=== PATIENT | male | born 1940 | race Caucasian/White ===

== ENCOUNTER → 2017-05-06 | Day surgery (SDC) | payer MEDICARE ==
[~2017-05-06] VITALS: Ht 180.3 cm; Wt 77.1 kg
[~2017-05-06] MED LIST: 0.9% Sodium Chloride 1,000 ML IV PRN; Sodium Chloride LOK Flush 10 mL Syringe IV PRN; fentaNYL-PF 50 mCg/mL 2 mL Inj IVPUSH PRN
[2017-05-06 08:14] VITALS: BP 132/82; PULSE 72; RESP 12; O2SAT 96
[2017-05-06 09:13] VITALS: BP 119/78; PULSE 67; RESP 14; O2SAT 98
[2017-05-06 09:26] VITALS: BP 116/72; PULSE 61; RESP 16; O2SAT 97
--- NOTE | 2017-05-06 09:44 | ENDO ---
[address] [address] ENDOSCOPY PROCEDURE PATIENT: LIAM YANG : 1940 MR#: [id number] ADMIT: 05/06/2017 JOB ID: [id number] DATE: 05/06/2017 PRIMARY PROVIDER: Bandar De Leon MD PROCEDURE: Colonoscopy with hot snare polypectomy and cold forceps polypectomy. INDICATIONS: A 76-year-old male with a personal history of colon polyps returning for surveillance. EQUIPMENT: PCF-H180AL SEDATION: 1. Versed 2 mg. 2. Fentanyl 50 mcg. COMPLICATIONS: None identified. BOWEL PREPARATION: Fair, adequate exam. PROCEDURE INFO: After the risks and benefits were explained, written and verbal informed consent was obtained. The patient was brought into the endoscopy suite and placed into the left lateral decubitus position. Sedation was achieved using the above-stated medications with the addition of oxygen via nasal cannula. The digital rectal examination was accomplished. Mild internal hemorrhoids were appreciated. The scope was then introduced into the rectum and advanced to the cecum as identified by the appendiceal orifice and ileocecal valve. The scope was slowly withdrawn to carefully examine the mucosa for any defects or lesions. Retroflexed views were avoided in the rectum. Multiple direct views were made through the dentate line for exclusion of pathology. The colon was decompressed. The scope removed the patient who tolerated the procedure well. FINDINGS: The patient had extensive diverticulosis through the left and right colon. In the ascending there was a diminutive perhaps 3 mm polyp removed with cold forceps. In the sigmoid there was an approximately 8-9 mm sessile polyp removed with hot snare. No other significant pathology was appreciated throughout. ENDOSCOPIC DIAGNOSES: 1. Hemorrhoids. 2. Colon polyps. 3. Diverticulosis. RECOMMENDATIONS: 1. Await histopathology. 2. Repeat colonoscopy in five years.
--- NOTE | 2017-05-09 10:35 | PATH ---
SURGICAL PATHOLOGY Attending Physician:Nuvia Perrin CASE STATUS: Signed Out PATIENT NAME: LIAM YANG PID: [id number] : 1940 DATE COLLECTED:05/06/2017 19:47 SPECIMEN: 1: Colon, Polyp 2: Colon, Polyp CLINICAL HISTORY: 1). ASCENDING COLON POLYP 2). SIGMOID COLON POLYP FINAL DIAGNOSIS: 1.ASCENDING COLON POLYP, BIOPSY: TUBULAR ADENOMA. 2.SIGMOID COLON POLYP, BIOPSY: HYPERPLASTIC POLYP WITH PROLAPSE FEATURES. ICD10 D12.6 GROSS DESCRIPTION: The specimen is received in two formalin filled containers labeled with the patient's name. 1). The specimen is labeled "ascending colon polyp" and consists of a 0.2 x 0.2 x 0.2 CM portion of tissue which is entirely submitted in cassette 1A. 2). The specimen is labeled "sigmoid colon polyp" and consists of a 0.5 x 0.5 x 0.5 CM portion of tissue which is entirely submitted in cassette 2A. 05/06/2017DC MICRO DESCRIPTION: See diagnosis. ICD-9 CODES: CPT CODES: 1: 73294 2: 88956 Electronically Signed Out Shakeel Angelo MD [facility] [address], [place] [address] Technical component performed at [facility], [facility] [address], [place], [address]
== END | disposition home or self-care (01) ==
LOC: END 07:33
PROVIDERS: ATTEND Internal Medicine Gastroenterology
DX: Z12.11 Encounter for screening for malignant neoplasm of colon (principal); D12.2 Benign neoplasm of ascending colon; K63.5 Polyp of colon; K57.30 Diverticulosis of large intestine without perforation or abscess without bleeding; K64.8 Other hemorrhoids; Z86.010 Personal history of colon polyps; R01.1 Cardiac murmur, unspecified; Z86.73 Personal history of transient ischemic attack (TIA), and cerebral infarction without residual deficits
CPT/HCPCS: 45380; 45385; 88305; 99153; G0500; J2250; J3010; J7030